=== PATIENT | male | born 1975 ===

== ENCOUNTER 2019-05-10 18:51 | Emergency (ER) | payer OTHER ==
[2019-05-10 19:03] VITALS: BP 139/79
--- NOTE | 2019-05-10 19:24 | UC ---
Throat Pain/Nasal Sherif HPI - HPI Summary HPI Summary: 43 yo male with fever and sore throat x 3 days MOODY myalgias - History of Current Complaint Chief Complaint: UCRespiratory Stated Complaint: SORE THROAT Time Seen by Provider: 05/10/19 18:55 Hx Obtained From: Patient Onset/Duration: Gradual Onset, Lasting Days Severity: Moderate Pain Intensity: 7 - refuses analgesic/anti pyretic here Pain Scale Used: 0-10 Numeric Cough: None Associated Signs & Symptoms: Positive: Fever - Epiglottits Risk Factors Epiglottis Risk Factors: Negative - Allergies/Home Medications Allergies/Adverse Reactions: Allergies Allergy/AdvReac Type Severity Reaction Status Date / Time Penicillins Allergy Severe Rash And Verified 05/10/19 19:03 Itching Home Medications: Home Medications Hydrochlorothiazide TAB* [Hydrodiuril TAB*] 25 mg PO DAILY 05/10/19 [History Confirmed 05/10/19] Losartan Potassium 25 mg PO DAILY 05/10/19 [History Confirmed 05/10/19] amLODIPine TAB* [Norvasc 5 mg TAB*] 5 mg PO DAILY 05/10/19 [History Confirmed ] PMH/Surg Hx/FS Hx/Imm Hx Previously Healthy: Yes Cardiovascular History: Hypertension - Surgical History Surgical History: Yes Surgery Procedure, Year, and Place: back surgery X2 - Family History Known Family History: Positive: Hypertension - Social History Alcohol Use: Weekly Alcohol Amount: 6 pack Substance Use Type: None Smoking Status (MU): Former Smoker When Did the Patient Quit Smoking/Using Tobacco: 20 years ago Review of Systems All Other Systems Reviewed And Are Negative: Yes Constitutional: Positive: Fever, Chills Skin: Positive: Negative Eyes: Positive: Negative ENT: Positive: Sore Throat Respiratory: Positive: Negative Cardiovascular: Positive: Negative Gastrointestinal: Positive: Negative Genitourinary: Positive: Negative Motor: Positive: Negative Neurovascular: Positive: Negative Musculoskeletal: Positive: Myalgia Neurological: Positive: Headache Psychological: Positive: Negative Physical Exam Triage Information Reviewed: Yes Appearance: Well-Appearing, No Pain Distress, Well-Nourished Vital Signs: Initial Vital Signs Temp 103.1 F 05/10/19 18:54 Pulse 101 05/10/19 18:54 Resp 12 05/10/19 18:54 BP 139/79 05/10/19 18:54 Pulse Ox 95 05/10/19 18:54 Vital Signs Reviewed: Yes Eyes: Positive: Conjunctiva Clear ENT: Positive: Hearing grossly normal, Pharyngeal erythema, Tonsillar swelling, Tonsillar exudate, Uvula midline. Negative: Nasal congestion, Nasal drainage, TMs normal, Trismus, Muffled voice, Hoarse voice, Dental tenderness, Sinus tenderness Neck: Positive: Supple, Nontender, Enlarged Nodes @ - ant cerv Respiratory: Positive: Lungs clear, Normal breath sounds, No respiratory distress, No accessory muscle use Cardiovascular: Positive: RRR, No Murmur Musculoskeletal: Positive: ROM Intact, No Edema Neurological Exam: Normal Neurological: Positive: Alert Psychological Exam: Normal Skin Exam: Normal Diagnostics - Laboratory Lab Results: strep (-) Throat Pain/Nasal Course/Dx - Differential Dx/Diagnosis Provider Diagnosis: Strep throat Discharge - Sign-Out/Discharge Documenting (check all that apply): Patient Departure All imaging exams completed and their final reports reviewed: No Studies - Discharge Plan Condition: Stable Disposition: HOME Prescriptions: Cephalexin CAP* [Keflex CAP*] 500 mg PO BID #20 cap Patient Education Materials: Strep Throat (ED) Referrals: Celeste Amador [Primary Care Provider] - Additional Instructions: rest fluids tylenol or advil recheck in 3 days if not better - Billing Disposition and Condition Condition: STABLE Disposition: Home
== END 2019-05-10 19:43 | disposition home or self-care (01) ==
LOC: UCEAST 18:51
DX: J02.0 Streptococcal pharyngitis (principal); I10 Essential (primary) hypertension; Z87.891 Personal history of nicotine dependence; Z88.0 Allergy status to penicillin
CPT/HCPCS: 87651; 99202; G0463